=== PATIENT | female | born 1975 | race Caucasian/White ===

== ENCOUNTER 2022-06-08 06:05 | Day surgery (SDC) | payer MEDICAID ==
[~2022-06-08] VITALS: Ht 154.9 cm; Wt 56.7 kg
[2022-06-08 06:42] LABS: HCG,QUAL RESULT NEGATIVE (NEGATIVE)
[2022-06-08] MEDS ORDERED: SIMETHICONE 40 MG/0.6 ML ML ONE (07:11)
[2022-06-08] MEDS: MIDAZOLAM HCL 5 MG/5 ML VIAL ONE ×7 (08:26→08:48)
[2022-06-08] MEDS: fentaNYL CITRATE/PF 100 MCG/2 ML AMP ONE ×3 (08:26→08:32)
[2022-06-08] MEDS ORDERED: fentaNYL CITRATE/PF 100 MCG/2 ML AMP ONE (08:35)
[2022-06-08 14:23] VITALS: BP_SYST 125
== END 2022-06-08 09:40 | disposition home or self-care (01) ==
LOC: SDS 06:05 → SMU 06:05 → SDS 09:40
PROVIDERS: ATTEND Internal Medicine
DX: R19.4 Change in bowel habit (principal); K64.8 Other hemorrhoids; Z20.822 Contact with and (suspected) exposure to COVID-19; Z79.899 Other long term (current) drug therapy
CPT/HCPCS: 87426; 36415; 45380; 96365; 84703; 88305; 99152; 99153; G0378; J2250; J3010